=== PATIENT | male | born 1990 | race Hispanic/Latino ===

== ENCOUNTER 2022-05-28 23:40 | Inpatient (IN) | payer MEDICAID, OTHER ==
[~2022-05-28] VITALS: Ht 177.8 cm; Wt 108.9 kg
[2022-05-29] VITALS (22 sets, daily range): BP systolic 115–149; BP diastolic 62–90
[2022-05-29] MEDS ORDERED: MORPHINE 4 MG SYG IM ONE (00:30)
[2022-05-29 00:38] LABS: BASOPHILS % (AUTO) 0.3 % (0.0-5.0); EOSINOPHILS % (AUTO) 0.5 % (0.0-8.0); HEMATOCRIT 46.4 % (42-54); LYMPHOCYTES % (AUTO) 10.5 % (21.0-51.0); MEAN CORPUSCULAR HEMOGLOBIN 29.9 pg (27.0-33.0); MEAN CORPUSCULAR HGB CONC 35.1 g/dL (32.0-36.0); MONOCYTES % (AUTO) 5.3 % (3.0-13.0); NEUTROPHILS % (AUTO) 82.9 % (40.0-77.0); PLATELET COUNT (AUTO) 284 K/uL (130-400); RED BLOOD CELL COUNT(AUTO) 5.46 MIL/uL (4.50-6.20); RED CELL DISTRIBUTION WIDTH 12.2 % (11.0-15.5); WHITE BLOOD COUNT (AUTO) 16.9 K/uL (4.8-10.8)
[2022-05-29 01:00] LABS: CREATININE 1.2 mg/dL (0.5-1.5); POTASSIUM 3.9 mmol/L (3.5-5.1)
[2022-05-29 01:05] LABS: ALBUMIN 4.4 g/dL (3.5-5.0); TOTAL PROTEIN, SERUM 8.7 g/dL (6.0-8.3)
[2022-05-29] MEDS ORDERED: ZOSYN 3.375GM +NS 50ML IVPB STA (02:40)
[2022-05-29] MEDS ORDERED: MORPHINE 4 MG SYG IVP STA (02:50)
[2022-05-29] MEDS ORDERED: MORPHINE 4 MG SYG IV PRN (03:30)
[2022-05-29] MEDS ORDERED: HYDROMORPHONE 1 MG INJ IVP ONE (03:30)
[2022-05-29] MEDS ORDERED: MORPHINE 2 MG SYG IV PRN (03:30)
[2022-05-29] MEDS ORDERED: ONDANSETRON 4MG INJ IV PRN (03:30)
[2022-05-29] MEDS ORDERED: LACTATED RINGERS 1000ML 2,190 ML IV ONE (03:30)
[2022-05-29] MEDS: LACTATED RINGERS 1000ML 1,000 ML IV SCH ×3 (03:54→22:47)
[2022-05-29 04:08] LABS: APPEARANCE,URINE CLEAR (CLEAR); BILIRUBIN,URINE NEGATIVE (NEGATIVE); COLOR,URINE YELLOW (YELLOW); GLUCOSE, URINE (UA) NEGATIVE (NEGATIVE); KETONES,URINE 10 mg/dL (NEGATIVE); LEUKOCYTE ESTERASE ,URINE NEGATIVE Leu/uL (NEGATIVE); NITRATE,URINE NEGATIVE (NEGATIVE); PH,URINE 5.5 (5.0-8.0); PROTEIN,URINE 30 mg/dL (NEGATIVE); UROBILINOGEN,URINE 0.2 mg/dL (0.2-1.0)
[2022-05-29 04:12] LABS: MUCUS,URINE FEW LPF (None Seen); SQUAMOUS EPITHELIAL CELL,UR RARE /HPF (0-2)
[2022-05-29] MEDS: ZOSYN 3.375GM+NS 50ML 50 ML IVPB SCH ×3 (05:00→20:39)
[2022-05-29 07:03] LABS: MAGNESIUM 1.5 mg/dL (1.80-2.40); PHOSPHORUS 4.9 mg/dL (2.5-4.9)
[2022-05-29 07:16] LABS: INR 0.98 (0.85-1.15); PROTHROMBIN TIME 10.7 SEC (9.6-11.6)
[2022-05-29 07:18] LABS: PARTIAL THROMBOPLASTIN TIME 28.1 SEC (26.3-35.5)
[2022-05-29] MEDS: PANTOPRAZOLE 40 MG/VIAL IVP SCH (07:52)
[2022-05-29] MEDS: MAGNESIUM 2GM PREMIX 50ML 50 ML IV SCH (07:53)
[2022-05-29] MEDS ORDERED: ENOXAPARIN SODIUM 40 MG/0.4 ML SYRINGE SQ SCH (09:00)
[2022-05-29] MEDS ORDERED: FAMOTIDINE 20MG VIAL IV SCH (09:00)
[2022-05-29] MEDS ORDERED: LIDOCAINE HCL 1% 20 ML VIAL ONE (13:01)
[2022-05-29] MEDS ORDERED: CEFAZOLIN SODIUM 1 GM VIAL ONE (13:01)
[2022-05-29] MEDS ORDERED: BUPIVACAINE/PF 0.5% 10ML VIAL ONE (13:01)
[2022-05-29] MEDS ORDERED: KETOROLAC 30MG VIAL (30MG/ML) ONE (13:57)
[2022-05-29] MEDS ORDERED: SUCCINYLCHOLINE 200MG/10ML SYR ONE (14:27)
[2022-05-29] MEDS ORDERED: MIDAZOLAM HCL 1 MG/ML 2ML VIAL ONE (14:27)
[2022-05-29] MEDS ORDERED: LIDOCAINE PF 100MG/5ML (2%) SYRINGE 5ML ONE (14:27)
[2022-05-29] MEDS ORDERED: DEXAMETHASONE SOD PHOSPHATE 10MG/ML 1ML VIAL ONE (14:27)
[2022-05-29] MEDS ORDERED: NEOSTIGMINE 5MG/5ML SYR IV ONE (14:28)
[2022-05-29] MEDS ORDERED: ROCURONIUM 10MG/1ML SYR 10 MG/ML ML ONE (14:28)
[2022-05-29] MEDS ORDERED: PROPOFOL 10 MG/ML 20ML VIAL IV ONE (14:28)
[2022-05-29] MEDS ORDERED: ONDANSETRON 4MG INJ ONE (14:28)
[2022-05-29] MEDS ORDERED: GLYCOPYRROLATE 1 MG/5 ML SYRINGE ONE (14:28)
[2022-05-29] MEDS ORDERED: KETOROLAC 30MG VIAL (30MG/ML) IVP SCH (14:30)
[2022-05-29] MEDS ORDERED: FENTANYL CITRATE PF 50 MCG/1 ML 5ML AMP IV ONE (14:56)
[2022-05-29] MEDS ORDERED: FENTANYL CITRATE PF 50 MCG/1 ML 2ML VIAL ONE (15:52)
[2022-05-29] MEDS ORDERED: OXYCODONE/ACETAMIN 5/325MG TAB PO PRN (17:30)
[2022-05-29] MEDS ORDERED: HYDROMORPHONE 1 MG INJ IVP PRN (17:30)
[2022-05-29] MEDS: KETOROLAC 15MG/ML VIAL (15MG/ML) IV PRN (20:39)
[2022-05-30] VITALS: BP 110/58
[2022-05-30 03:49] VITALS: BP 101/63
[2022-05-30] MEDS: ZOSYN 3.375GM+NS 50ML 50 ML IVPB SCH ×3 (03:49→20:11)
[2022-05-30] MEDS: KETOROLAC 15MG/ML VIAL (15MG/ML) IV PRN ×3 (03:53→20:15)
[2022-05-30 04:46] LABS: BASOPHILS % (AUTO) 0.1 % (0.0-5.0); LYMPHOCYTES % (AUTO) 7.4 % (21.0-51.0); MEAN CORPUSCULAR HEMOGLOBIN 29.6 pg (27.0-33.0); MEAN CORPUSCULAR HGB CONC 34.2 g/dL (32.0-36.0); MEAN CORPUSCULAR VOLUME 86.7 fL (79-99); MONOCYTES % (AUTO) 5.3 % (3.0-13.0); NEUTROPHILS % (AUTO) 86.8 % (40.0-77.0); PLATELET COUNT (AUTO) 231 K/uL (130-400); RED BLOOD CELL COUNT(AUTO) 4.15 MIL/uL (4.50-6.20); RED CELL DISTRIBUTION WIDTH 12.5 % (11.0-15.5); WHITE BLOOD COUNT (AUTO) 15.6 K/uL (4.8-10.8)
[2022-05-30 04:59] LABS: POTASSIUM 3.6 mmol/L (3.5-5.1)
[2022-05-30] MEDS: MAGNESIUM 2GM PREMIX 50ML 50 ML IV SCH (06:44)
[2022-05-30 08:00] VITALS: BP 115/41
[2022-05-30] MEDS: PANTOPRAZOLE 40 MG/VIAL IVP SCH (09:23)
[2022-05-30 11:28] VITALS: BP 113/55
[2022-05-30] MEDS: LACTATED RINGERS 1000ML 1,000 ML IV SCH (13:25)
[2022-05-30 16:00] VITALS: BP 106/53
[2022-05-30 20:09] VITALS: BP 148/82
[2022-05-30] MEDS: GUAIFENESIN 600 MG TABLET.ER PO SCH (20:26)
[2022-05-30] MEDS ORDERED: ALBUTEROL 0.042% 1.25MG/3ML IH ONE (23:46)
[2022-05-30] MEDS: IPRATROPIUM 0.5 MG/2.5 ML INH IH SCH (23:53)
[2022-05-30] MEDS: ALBUTEROL 0.083% 2.5 MG/3 ML INH IH SCH (23:55)
[2022-05-31 00:09] VITALS: BP 113/69
[2022-05-31] MEDS: LACTATED RINGERS 1000ML 1,000 ML IV SCH (01:37)
[2022-05-31 03:45] VITALS: BP 110/72
[2022-05-31] MEDS: ZOSYN 3.375GM+NS 50ML 50 ML IVPB SCH ×2 (05:23→13:00)
[2022-05-31] MEDS: KETOROLAC 15MG/ML VIAL (15MG/ML) IV PRN (05:25)
[2022-05-31] MEDS: ALBUTEROL 0.083% 2.5 MG/3 ML INH IH SCH (06:00)
[2022-05-31 06:25] LABS: BASOPHILS % (AUTO) 0.4 % (0.0-5.0); EOSINOPHILS % (AUTO) 0.5 % (0.0-8.0); HEMATOCRIT 34.7 % (42-54); LYMPHOCYTES % (AUTO) 32.2 % (21.0-51.0); MEAN CORPUSCULAR HEMOGLOBIN 29.6 pg (27.0-33.0); MEAN CORPUSCULAR HGB CONC 32.9 g/dL (32.0-36.0); MEAN CORPUSCULAR VOLUME 90.1 fL (79-99); MONOCYTES % (AUTO) 7.3 % (3.0-13.0); NEUTROPHILS % (AUTO) 59.3 % (40.0-77.0); PLATELET COUNT (AUTO) 199 K/uL (130-400); RED BLOOD CELL COUNT(AUTO) 3.85 MIL/uL (4.50-6.20); RED CELL DISTRIBUTION WIDTH 12.6 % (11.0-15.5); WHITE BLOOD COUNT (AUTO) 9.9 K/uL (4.8-10.8)
[2022-05-31 06:42] LABS: ALBUMIN 2.8 g/dL (3.5-5.0); CRP QUANTITATIVE 62.9 mg/L (0.00-9.0); MAGNESIUM 1.9 mg/dL (1.80-2.40); TOTAL PROTEIN, SERUM 6.1 g/dL (6.0-8.3)
[2022-05-31] MEDS: IPRATROPIUM 0.5 MG/2.5 ML INH IH SCH ×2 (06:46→11:29)
[2022-05-31] MEDS: MAGNESIUM 2GM PREMIX 50ML 50 ML IV SCH (07:03)
[2022-05-31] MEDS ORDERED: ALBUTEROL 0.042% 1.25MG/3ML IH ONE ×2 (07:26→11:31)
[2022-05-31 07:55] VITALS: BP 125/71
[2022-05-31] MEDS: GUAIFENESIN 600 MG TABLET.ER PO SCH (09:00)
[2022-05-31] MEDS: PANTOPRAZOLE 40 MG/VIAL IVP SCH (09:00)
[2022-05-31 11:27] VITALS: BP 119/82
== END 2022-05-31 15:00 | disposition home or self-care (01) | DRG 342 ==
LOC: EDH 23:40 → EDHIP 23:41 → UNDOADMIN 23:41 → EDHIP 23:42 → UNDOADMIN 23:42 → 3CH 05-29 08:30 → EDHIP 05-29 08:30
PROVIDERS: ADMIT Internal Medicine; ATTEND Internal Medicine
PROC: 0DTJ4ZZ Resection of Appendix, Percutaneous Endoscopic Approach (ICD-10-PCS; principal; 2022-05-29 15:08)
DX: K35.891 Other acute appendicitis without perforation, with gangrene (principal); E87.20 Acidosis, unspecified; E66.9 Obesity, unspecified; N50.819 Testicular pain, unspecified; Z20.822 Contact with and (suspected) exposure to COVID-19; Z56.0 Unemployment, unspecified; Z68.34 Body mass index [BMI] 34.0-34.9, adult
CPT/HCPCS: 36415; 71045; 74176; 80048; 80053; 81001; 83605; 83735; 84100; 84145; 85025; 85610; 85730; 86140; 86850; 86900; 86901; 87040; 87071; 87205; 87635; 93005; 94640; 94664; 96365; 96372; 96375; C9113; G0378; J0330; J0690; J1100; J1170; J1885; J2001; J2250; J2270; J2405; J2543; J2704; J2710; J3010; J3475; J3490; J7120